=== PATIENT | female | born 1940 | race African-American/Black ===

== ENCOUNTER 2023-02-09 06:18 | Emergency (ER) | payer MEDICARE, OTHER ==
[~2023-02-09] VITALS: Ht 152.4 cm; Wt 50.6 kg
[2023-02-09 06:18] VITALS: BP 0/0
[2023-02-09 06:30] VITALS: PULSE 40; RESP 22
[2023-02-09] MEDS ORDERED: NOREPINEPHRINE 8MG/250ML PMX 250 ML IV ONE (06:45)
[2023-02-09] MEDS ORDERED: NOREPINEPHRINE 8MG/250ML PMX 250 ML IV STA (06:47)
[2023-02-09] MEDS ORDERED: PIPERACILLIN/TAZ 3.375G PREMIX 50 ML IV ONE (07:00)
[2023-02-09] MEDS ORDERED: VANCOMYCIN 1G PREMIX 200 ML IV ONE (07:00)
== END 2023-02-09 06:57 ==
LOC: ER 06:18
DX: I46.9 Cardiac arrest, cause unspecified (principal); J96.01 Acute respiratory failure with hypoxia; K92.2 Gastrointestinal hemorrhage, unspecified; I10 Essential (primary) hypertension; Z86.73 Personal history of transient ischemic attack (TIA), and cerebral infarction without residual deficits
CPT/HCPCS: 82962; 86900; 86901; 86920; 36415; 71045; 92950; 31500 ×2; 93005; 99291; J3490; 36430; 94002; P9016